=== PATIENT | female | born 1980 ===

== ENCOUNTER 2022-10-19 08:15 | Inpatient (IN) | payer OTHER ==
[~2022-10-19] VITALS: Ht 165.1 cm; Wt 86.2 kg
[2022-10-19] MEDS ORDERED: PLANQUENIL PO (08:52)
[2022-10-19] MEDS ORDERED: NAPR500T14 PO (08:53)
[2022-10-19] MEDS ORDERED: [UNRECOGNIZED DRUG - OTHER] (08:53)
[2022-10-19] MEDS ORDERED: TREXALL15 MG PO (08:53)
[2022-10-19] MEDS ORDERED: ALBUTEROL0.63 MG/3 IH (08:55)
[2022-10-24] MEDS ORDERED: HYDROXYCHLOROQ200 MG (11:09)
[2022-10-24] MEDS ORDERED: FOLIC ACID1 MG (11:10)
[2022-10-24] MEDS ORDERED: BUTALB-ACETAMI1 EAC2 (11:11)
[2022-10-25] MEDS ORDERED: IBU800 MG PO (07:14)
[2022-10-25] MEDS ORDERED: NEURONTIN300 MG PO (07:15)
[2022-10-25] MEDS ORDERED: LEVSIN/SL0.125 MG SL (07:16)
[2022-10-25] MEDS ORDERED: ZOFRAN8 MG PO (07:17)
== END 2022-10-25 09:14 | disposition home or self-care (01) | DRG 743 ==
LOC: O/R 10-24 07:43 → SURG 10-24 08:15 → OB/GYN 10-24 16:27
PROVIDERS: ADMIT Obstetrics & Gynecology Gynecology; ATTEND Obstetrics & Gynecology Gynecology
PROC: 0UT74ZZ Resection of Bilateral Fallopian Tubes, Percutaneous Endoscopic Approach (ICD-10-PCS; 2022-10-24)
PROC: 0UT94ZZ Resection of Uterus, Percutaneous Endoscopic Approach (ICD-10-PCS; principal; 2022-10-24 14:30)
DX: D25.0 Submucous leiomyoma of uterus (principal); D25.2 Subserosal leiomyoma of uterus; N72 Inflammatory disease of cervix uteri; Z20.822 Contact with and (suspected) exposure to COVID-19